=== PATIENT | male | born 1970 | race African-American/Black ===

== ENCOUNTER 2024-07-30 10:25 | Emergency (ER) | payer OTHER ==
[2024-07-30] MEDS ORDERED: Iopamidol-370 76% 500 ML MDV (1 ML CHARGE) ONE (10:28)
[2024-07-30 10:46] LABS: #Basophils 0.03 10x3/uL (0.0-0.2); %Basophils 0.3 % (0.0-1.0); %Eosinophils 0.4 % (0.0-10.0); %Lymphocytes 5.2 % (21.0-51.0); %Monocytes 4.7 % (0.0-10.0); Hematocrit 44.2 % (42.0-52.0); Hemoglobin 14.9 g/dL (14.0-18.0); Mean Corpuscular HGB CONC 33.7 g/dL (32.0-36.0); Mean Corpuscular Hemoglobin 29.4 pg (27.0-31.0); Mean Corpuscular Volume 87.2 fL (78.0-98.0); Mean Platelet Volume 8.8 fL (7.4-10.4); Platelet Count 325 10x3/uL (130-400); RBC Distribution Width 13.2 % (11.5-14.5); Red Blood Cell (RBC) Count 5.07 mill/uL (4.70-6.10)
[2024-07-30] MEDS ORDERED: fentaNYL 50 mcg/mL 1 mL Vial ONE ×2 (11:01→13:14)
[2024-07-30 11:07] LABS: Alcohol Less than 10.0 mg/dL (Less than 10)
[2024-07-30 11:09] LABS: PTT 23.5 sec (22.9-36.1); Prothrombin Time 13.5 sec (12.0-14.7)
[2024-07-30 11:10] LABS: ALT (SGPT) 31 U/L (8-55); AST (SGOT) 32 U/L (5-34); Albumin 3.9 g/dL (3.5-5.0); Alkaline Phosphatase 80 U/L (40-110); Anion Gap 14 mmol/L (10-20); BUN (Urea Nitrogen) 19 mg/dL (8.4-25.7); Calc. Creatinine Clearance 0 mL/min (70-130); Calcium 8.6 mg/dL (7.8-10.44); Carbon Dioxide 21 mmol/L (22-29); Chloride 108 mmol/L (98-107); Estimated GFR 58; Globulin 2.9 g/dL (2.4-3.5); Glucose 140 mg/dL (70-105); Lipase 34 U/L (8-78); Potassium 3.7 mmol/L (3.5-5.1); Protein, Total 6.8 g/dL (6.0-8.3); Sodium 139 mmol/L (136-145)
[2024-07-30 12:26] LABS: Bacteria/HPF None Seen HPF (None Seen); Bilirubin Negative (Negative); Blood, Urine Negative (Negative); Clarity Clear (Clear); Glucose, Urine (Dipstick) Normal (Negative); Ketone, Urine Negative (Negative); Leukocyte Negative Leu/uL (Negative); Nitrite Negative (Negative); Protein, Urine (Dipstick) 20 mg/dL (Neg-Trace); RBC/HPF 0-3 HPF (0-3); Specific Gravity, Urine 1.041 (1.002-1.036); Squamous Epithelial None Seen HPF (0-3); Urobilinogen Normal mg/dL (Less than 2); WBC/HPF 0-3 HPF (0-3); pH, Urine 7.5 (5.0-9.0)
[2024-07-30 12:30] LABS: Sperm/HPF Rare HPF (None Seen)
[2024-07-30 12:32] LABS: Urine Culture Reflex No No
[2024-07-30] MEDS ORDERED: Lidocaine 1% w/Epinephrine 1:100K 20 ML VIAL ONE (13:15)
[2024-07-30] MEDS ORDERED: Ondansetron PF 4 MG/2 ML Vial ONE (13:18)
[2024-07-30 13:43] LABS: Lactic Acid 2.39 mmol/L (0.5-2.2)
[2024-07-30] MEDS ORDERED: Bacitracin 1 PK ONE (14:09)
== END 2024-07-30 14:30 | disposition home or self-care (01) ==
LOC: ERS 10:25
DX: S06.0X9A Concussion with loss of consciousness of unspecified duration, initial encounter (principal); S01.81XA Laceration without foreign body of other part of head, initial encounter; S01.111A Laceration without foreign body of right eyelid and periocular area, initial encounter; S30.1XXA Contusion of abdominal wall, initial encounter; E78.5 Hyperlipidemia, unspecified; V49.40XA Driver injured in collision with unspecified motor vehicles in traffic accident, initial encounter; W22.11XA Striking against or struck by driver side automobile airbag, initial encounter; Y93.89 Activity, other specified; Z79.899 Other long term (current) drug therapy
CPT/HCPCS: 12013; 36415; 70450; 71045; 71260; 72125; 72170; 74177; 80053; 80307; 81001; 83605; 83690; 85025; 85610; 85730; 93005; 96374; 96375; 96376; G0390; J2405; J3010; Q9967